=== PATIENT | female | born 2005 | race Caucasian/White ===

== ENCOUNTER 2024-09-16 20:45 | Emergency (ER) | payer BC ==
[2024-09-16 22:00] LABS: #Basophils 0.07 10x3/uL (0.0-0.2); %Basophils 0.7 % (0.0-1.0); %Eosinophils 1.2 % (0.0-10.0); %Lymphocytes 33.3 % (28.0-48.0); %Monocytes 6.7 % (0.0-4.0); %Neutrophils 57.9 % (31.0-61.0); Hematocrit 39.2 % (36.0-47.0); Hemoglobin 13.8 g/dL (12.0-16.0); Mean Corpuscular HGB CONC 35.2 g/dL (32.0-36.0); Mean Corpuscular Hemoglobin 31.6 pg (25.0-35.0); Mean Corpuscular Volume 89.7 fL (78.0-98.0); Mean Platelet Volume 10.9 fL (7.4-10.4); Platelet Count 284 10x3/uL (130-400); RBC Distribution Width 10.9 % (11.5-14.5); Red Blood Cell (RBC) Count 4.37 mill/uL (4.00-5.20)
[2024-09-16 22:21] LABS: ALT (SGPT) 28 U/L (Less than 34); AST (SGOT) 36 U/L (11-34); Albumin 4.6 g/dL (3.1-4.5); Alkaline Phosphatase 56 U/L (40-100); Anion Gap 18 mmol/L (10-20); BUN (Urea Nitrogen) 8 mg/dL (8.4-21.0); Bilirubin, Total 0.6 mg/dL (0.3-1.2); Calc. Creatinine Clearance 0 mL/min (70-130); Calcium 9.5 mg/dL (7.8-10.44); Carbon Dioxide 20 mmol/L (22-29); Chloride 105 mmol/L (98-107); Estimated GFR 134; Globulin 3.3 g/dL (2.4-3.5); Glucose 80 mg/dL (70-105); Potassium 3.5 mmol/L (3.5-5.1); Protein, Total 7.9 g/dL (6.0-8.3); Sodium 139 mmol/L (136-145)
[2024-09-16 22:30] LABS: BHCG - Serum Negative (NEGATIVE); Pregs Control Background? CLEAR/WHITE (CLR/WHITE); Pregs Control Bar Appear? YES (CONTROL BAR)
== END 2024-09-16 23:07 | disposition home or self-care (01) ==
LOC: ERS 20:45
DX: R20.2 Paresthesia of skin (principal)
CPT/HCPCS: 71046; 80053; 84703; 85025; 93005